=== PATIENT | female | born 1990 | race Caucasian/White ===

== ENCOUNTER → 2017-03-02 | Outpatient (CLI) | payer OTHER ==
[2017-03-02 14:51] LABS: Basophils % (A) 0 %; CH 30.4; Eosinophils # (A) 0.2 k/uL (0-0.7); Eosinophils % (A) 3 %; HCT 38.9 % (34.0-46.0); HDW 2.52; HGB 13.4 gm/dL (11.4-16.0); Luc # (Auto) 0.24; Luc % (Auto) 4; Lymphocytes % (A) 32 %; MCH 30.9 pg (25.0-35.0); MCHC 34.5 g/dL (31.0-37.0); MCV 89.7 fL (80.0-100.0); Mean Platelet Volume 7.1; Monocytes # (A) 0.4 k/uL (0-1.0); Monocytes % (A) 6 %; Neutrophils # (A) 3.5 k/uL (1.3-7.7); Neutrophils % (A) 55 %; RBC 4.34 m/uL (3.80-5.40); RDW 12.5 % (11.5-15.5); WBC 6.3 k/uL (3.8-10.6); WBC (Perox) 6.26
[2017-03-02 15:41] LABS: Erythrocyte Sedimentation Rate 7 mm/hr (0-20)
[2017-03-04 21:28] LABS: ANA w/Reflex to Titer NEGATIVE (NEGATIVE)
== END | disposition home or self-care (01) ==
LOC: LABWHC1 14:04
PROVIDERS: ATTEND Family Medicine
DX: M79.7 Fibromyalgia (principal); G43.109 Migraine with aura, not intractable, without status migrainosus
CPT/HCPCS: 36415; 85025; 85652; 86038; 86140; 86162; 86225

== ENCOUNTER → 2017-07-21 | Outpatient (CLI) | payer OTHER ==
--- NOTE | 2017-07-21 17:42 | CT ---
EXAMINATION TYPE: CT abdomen pelvis wo con DATE OF EXAM: 07/21/2017 COMPARISON: NONE HISTORY: Left flank pain x today CT DLP: 930 mGycm Automated exposure control for dose reduction was used. TECHNIQUE: Helical acquisition of images was performed from the lung bases through the pelvis. FINDINGS: Lung bases are clear of consolidation. There is no pleural effusion. Heart size is normal. Liver and spleen appear normal. The bile ducts are not dilated. There is no pancreatic mass. Gallbladder appear s normal. There is no adrenal mass. Kidneys have normal size and contour. There is no hydronephrosis. Ureters are not dilated. There is no retroperitoneal adenopathy. Appendix appears normal. There is n o ascites. There is no sign of free air. I see no intestinal wall thickening. There are no dilated loops. Bladder distends smoothly. There is a 2.5 cm cyst on the left ovary. Uterus is anteverted. I see no bony destructive process. Lumbar spin e appears normal. IMPRESSION: NEGATIVE CT SCAN OF THE ABDOMEN AND PELVIS. I DO NOT SEE A CAUSE FOR LEFT-SIDED FLANK PAIN. LEFT OVAR SAE CYST NOTED.
== END | disposition home or self-care (01) ==
LOC: RADCTMAIN 17:06
PROVIDERS: ATTEND Family Medicine
DX: N83.202 Unspecified ovarian cyst, left side (principal); Z87.442 Personal history of urinary calculi
CPT/HCPCS: 74176

== ENCOUNTER 2018-08-28 18:17 | Emergency (ER) | payer OTHER ==
[2018-08-28] MEDS ORDERED: SODIUM CHLORIDE 0.9% 1,000 ML IV STA (18:48)
[2018-08-28] MEDS ORDERED: ONDANSETRON 4 MG/2 ML VIAL IVP STA (18:48)
--- NOTE | 2018-08-28 18:51 | ED ---
Fever HPI - General Chief Complaint: Fever Stated Complaint: Flu SX Time Seen by Provider: 08/28/18 18:39 Source: patient Mode of arrival: ambulatory Limitations: no limitations - History of Present Illness Initial Comments: 28-year-old female presents with upper respiratory symptoms for last 2 days. Patient did cough congestion headache fevers nasal drainage and sore throat. Patient states he started with nausea vomiting diarrhea. Patient has been exposed to clinic flu. Patient is a group home. Patient's been giving herself Motrin and Tylenol however today not able to keep anything down. Patient states she has not urinated since this morning. No abdominal pain no back pain. No shortness of breath and wheezing MD Complaint: fever Context: sick contacts Associated Symptoms: headache, rhinorrhea, nasal congestion, sore throat, cough Treatments Prior to Arrival: Acetaminophen, Ibuprofen - Related Data Home Medications Medication Instructions Recorded Confirmed ALPRAZolam [Xanax] 0.5 mg PO Q12HR PRN 01/09/14 09/06/14 Citalopram Hydrobromide [CeleXA] 20 mg PO DAILY 01/09/14 09/06/14 Previous Rx's Medication Instructions Recorded Naproxen Sodium [Anaprox Ds] 550 mg PO Q12HR #20 tab 09/06/14 Orphenadrine [Norflex] 100 mg PO Q12H #20 tablet.er 09/06/14 traMADol HCl [Ultram] 50 mg PO Q4H PRN #20 tab 09/06/14 Ciprofloxacin HCl [Cipro] 500 mg PO Q12H 5 Days #10 tab 08/28/18 Ondansetron Odt [Zofran Odt] 4 mg PO Q8HR PRN #12 tab 08/28/18 Oseltamivir [Tamiflu] 75 mg PO Q12HR #10 cap 08/28/18 Allergies Allergy/AdvReac Type Severity Reaction Status Date / Time No Known Allergies Allergy Verified 08/28/18 18:28 Review of Systems ROS Statement: Those systems with pertinent positive or pertinent negative responses have been documented in the HPI. ROS Other: All systems not noted in ROS Statement are negative. Constitutional: Reports: fever ENT: Reports: throat pain Respiratory: Reports: cough Endocrine: Reports: fatigue Gastrointestinal: Reports: nausea, vomiting, diarrhea Neurological: Reports: headache Past Medical History Past Medical History: Fibromyalgia, Thyroid Disorder History of Any Multi-Drug Resistant Organisms: None Reported Past Surgical History: No Surgical Hx Reported Past Psychological History: Anxiety, Depression Smoking Status: Former smoker Past Alcohol Use History: Rare Past Drug Use History: None Reported General Exam Limitations: no limitations General appearance: alert, in no apparent distress Head exam: Present: atraumatic, normocephalic, normal inspection Eye exam: Present: normal appearance, PERRL, EOMI. Absent: scleral icterus, conjunctival injection, periorbital swelling ENT exam: Present: normal exam, mucous membranes moist Neck exam: Present: normal inspection. Absent: tenderness, meningismus, lymphadenopathy Respiratory exam: Present: normal lung sounds bilaterally. Absent: respiratory distress, wheezes, rales, rhonchi, stridor Cardiovascular Exam: Present: regular rate, normal rhythm, normal heart sounds. Absent: systolic murmur, diastolic murmur, rubs, gallop, clicks GI/Abdominal exam: Present: soft, tenderness (Mildly generally tender 4), normal bowel sounds. Absent: distended, guarding, rebound, rigid Course Vital Signs 08/28/18 18:25 Temperature 98.2 F Pulse Rate 104 H Respiratory 18 Rate Blood Pressure 109/72 O2 Sat by Pulse 100 Oximetry Medical Decision Making - Medical Decision Making Reviewed labs and x-ray negative for any acute changes decides urinalysis does show some white blood cells and mucus sediment. We will start on antibiotics. I'm still going to cover her with Tamiflu in regards to clinically having him influenza-type picture. Patient aware also of her antinausea medication as well. Patient can easily hydrated monitor her urinary output. Patient to be off work for the next 2 days. Return if symptoms are not improving or worsening. - Lab Data Result diagrams: 08/28/18 19:05 08/28/18 19:05 Lab Results 08/28/18 08/28/18 08/28/18 Range/Units 18:55 18:55 18:55 WBC (3.8-10.6) k/uL RBC (3.80-5.40) m/uL Hgb (11.4-16.0) gm/dL Hct (34.0-46.0) % MCV (80.0-100.0) fL MCH (25.0-35.0) pg MCHC (31.0-37.0) g/dL RDW (11.5-15.5) % Plt Count (150-450) k/uL Neutrophils % % Lymphocytes % % Monocytes % % Eosinophils % % Basophils % % Neutrophils # (1.3-7.7) k/uL Lymphocytes # (1.0-4.8) k/uL Monocytes # (0-1.0) k/uL Eosinophils # (0-0.7) k/uL Basophils # (0-0.2) k/uL Sodium (137-145) mmol/L Potassium (3.5-5.1) mmol/L Chloride (98-107) mmol/L Carbon Dioxide (22-30) mmol/L Anion Gap mmol/L BUN (7-17) mg/dL Creatinine (0.52-1.04) mg/dL Est GFR (CKD-EPI)AfAm (>60 ml/min/1.73 sqM) Est GFR (CKD-EPI)NonAf (>60 ml/min/1.73 sqM) Glucose (74-99) mg/dL Calcium (8.4-10.2) mg/dL Total Bilirubin (0.2-1.3) mg/dL AST (14-36) U/L ALT (9-52) U/L Alkaline Phosphatase (38-126) U/L Total Protein (6.3-8.2) g/dL Albumin (3.5-5.0) g/dL Urine Color Yellow Urine Appearance Cloudy H (Clear) Urine pH 5.5 (5.0-8.0) Ur Specific [place] 1.025 (1.001-1.035) Urine Protein Trace H (Negative) Urine Glucose (UA) Negative (Negative) Urine Ketones Negative (Negative) Urine Blood Negative (Negative) Urine Nitrite Negative (Negative) Urine Bilirubin Negative (Negative) Urine Urobilinogen <2.0 (<2.0) mg/dL Ur Leukocyte Esterase Moderate H (Negative) Urine WBC 63 H (0-5) /hpf Ur Squamous Epith Cells 45 H (0-4) /hpf Amorphous Sediment Rare H (None) /hpf Hyaline Casts 8 H (0-2) /lpf Urine Mucus Many H (None) /hpf Urine HCG, Qual Not Detected (Not Detectd) Influenza Type A RNA Not Detected (Not Detectd) Influenza Type B (PCR) Not Detected (Not Detectd) 08/28/18 08/28/18 Range/Units 19:05 19:05 WBC 9.9 (3.8-10.6) k/uL RBC 5.16 (3.80-5.40) m/uL Hgb 15.7 (11.4-16.0) gm/dL Hct 46.0 (34.0-46.0) % MCV 89.1 (80.0-100.0) fL MCH 30.4 (25.0-35.0) pg MCHC 34.1 (31.0-37.0) g/dL RDW 12.6 (11.5-15.5) % Plt Count 302 (150-450) k/uL Neutrophils % 86 % Lymphocytes % 5 % Monocytes % 5 % Eosinophils % 1 % Basophils % 0 % Neutrophils # 8.5 H (1.3-7.7) k/uL Lymphocytes # 0.5 L (1.0-4.8) k/uL Monocytes # 0.5 (0-1.0) k/uL Eosinophils # 0.1 (0-0.7) k/uL Basophils # 0.0 (0-0.2) k/uL Sodium 141 (137-145) mmol/L Potassium 4.2 (3.5-5.1) mmol/L Chloride 110 H (98-107) mmol/L Carbon Dioxide 19 L (22-30) mmol/L Anion Gap 12 mmol/L BUN 17 (7-17) mg/dL Creatinine 0.86 (0.52-1.04) mg/dL Est GFR (CKD-EPI)AfAm >90 (>60 ml/min/1.73 sqM) Est GFR (CKD-EPI)NonAf >90 (>60 ml/min/1.73 sqM) Glucose 103 H (74-99) mg/dL Calcium 9.9 (8.4-10.2) mg/dL Total Bilirubin 0.5 (0.2-1.3) mg/dL AST 20 (14-36) U/L ALT 31 (9-52) U/L Alkaline Phosphatase 66 (38-126) U/L Total Protein 8.5 H (6.3-8.2) g/dL Albumin 5.0 (3.5-5.0) g/dL Urine Color Urine Appearance (Clear) Urine pH (5.0-8.0) Ur Specific Bellflower (1.001-1.035) Urine Protein (Negative) Urine Glucose (UA) (Negative) Urine Ketones (Negative) Urine Blood (Negative) Urine Nitrite (Negative) Urine Bilirubin (Negative) Urine Urobilinogen (<2.0) mg/dL Ur Leukocyte Esterase (Negative) Urine WBC (0-5) /hpf Ur Squamous Epith Cells (0-4) /hpf Amorphous Sediment (None) /hpf Hyaline Casts (0-2) /lpf Urine Mucus (None) /hpf Urine HCG, Qual (Not Detectd) Influenza Type A RNA (Not Detectd) Influenza Type B (PCR) (Not Detectd) Disposition Clinical Impression: Fever, Dehydration, Gastroenteritis, UTI (urinary tract infection) Disposition: HOME SELF-CARE Condition: Good Instructions (If sedation given, give patient instructions): Dehydration (ED), Fever in Adults (ED), Gastroenteritis (ED), Urinary Tract Infection in Women (ED) Prescriptions: Ciprofloxacin HCl [Cipro] 500 mg PO Q12H 5 Days #10 tab Oseltamivir [Tamiflu] 75 mg PO Q12HR #10 cap Ondansetron Odt [Zofran Odt] 4 mg PO Q8HR PRN #12 tab PRN Reason: Nausea Is patient prescribed a controlled substance at d/c from ED?: No Referrals: Levon Longo Jr, DO [Primary Care Provider] - 1-2 days Time of Disposition: 20:27
[2018-08-28 19:21] LABS: HGB 15.7 gm/dL (11.4-16.0); MCH 30.4 pg (25.0-35.0); MCHC 34.1 g/dL (31.0-37.0); MCV 89.1 fL (80.0-100.0); RBC 5.16 m/uL (3.80-5.40); RDW 12.6 % (11.5-15.5); WBC 9.9 k/uL (3.8-10.6)
[2018-08-28 19:22] LABS: Basophils % (A) 0 %; Eosinophils # (A) 0.1 k/uL (0-0.7); Eosinophils % (A) 1 %; Lymphocytes # (A) 0.5 k/uL (1.0-4.8); Lymphocytes % (A) 5 %; Mean Platelet Volume 6.4; Monocytes # (A) 0.5 k/uL (0-1.0); Monocytes % (A) 5 %; Neutrophils # (A) 8.5 k/uL (1.3-7.7); Neutrophils % (A) 86 %; Platelet Count 302 k/uL (150-450)
[2018-08-28 19:28] LABS: ALT 31 U/L (9-52); AST 20 U/L (14-36); Alkaline Phosphatase 66 U/L (38-126); Anion Gap 12 mmol/L; Blood Urea Nitrogen 17 mg/dL (7-17); Calcium 9.9 mg/dL (8.4-10.2); Carbon Dioxide 19 mmol/L (22-30); Chloride 110 mmol/L (98-107); Glucose 103 mg/dL (74-99); Potassium 4.2 mmol/L (3.5-5.1); Sodium 141 mmol/L (137-145); Total Bilirubin 0.5 mg/dL (0.2-1.3); Total Protein 8.5 g/dL (6.3-8.2)
[2018-08-28 19:41] LABS: Amorphous Sediment,Urine Rare /hpf; Appearance,Urine Cloudy (Clear); Bilirubin,Urine Negative (Negative); Blood,Urine Negative (Negative); Color,Urine Yellow; Glucose,Urine (UA) Negative (Negative); Hyaline Casts,Urine 8 /lpf (0-2); Ketones,Urine Negative (Negative); Leukocyte Esterase,Urine Moderate (Negative); Mucus,Urine Many /hpf; Nitrite,Urine Negative (Negative); PH, Urine 5.5 (5.0-8.0); Protein,Urine Trace (Negative); Specific Gravity,Urine 1.025 (1.001-1.035); Squamous Epithelial Cell,Urine 45 /hpf (0-4); Urobilinogen,Urine <2.0 mg/dL (<2.0)
--- NOTE | 2018-08-28 20:04 | XR ---
EXAMINATION TYPE: XR chest 2V DATE OF EXAM: 08/28/2018 COMPARISON: 01/09/2014 HISTORY: Cough, congestion, fever and body aches TECHNIQUE: Frontal and lateral views of the chest are obtained. FINDINGS: There is no focal air space opacity, pleural effusion, or pneumothorax seen. The cardiac silhouette size is within normal limits. The osseous structures are intact. IMPRESSION: No acute cardiopulmonary process.
[2018-08-28 20:39] VITALS: BP 110/59; PULSE 95; RESP 20; TEMP 100.6
== END 2018-08-28 20:39 | disposition home or self-care (01) ==
LOC: EC 18:17
DX: K52.9 Noninfective gastroenteritis and colitis, unspecified (principal); N39.0 Urinary tract infection, site not specified; R09.81 Nasal congestion; R05 Cough; J02.9 Acute pharyngitis, unspecified; J34.89 Other specified disorders of nose and nasal sinuses; R51 Headache; F41.9 Anxiety disorder, unspecified; F32.9 Major depressive disorder, single episode, unspecified; Z87.891 Personal history of nicotine dependence; Z79.899 Other long term (current) drug therapy
CPT/HCPCS: 36415; 80053; 85025; 81001; 81025; 87086; 87502; 71046; 99283; 96374; 96361; J2405

== ENCOUNTER → 2018-10-29 | Outpatient (CLI) | payer OTHER ==
--- NOTE | 2018-11-01 08:01 | MM ---
Reason for exam: clinical finding. History: Patient is nulliparous. Took hormonal contraceptives for 5 years. Indicated problem(s): pain in the left breast. Physical Findings: Nurse Summary: 1cm nodule in the left breast at 3 and 4 o'clock (nurse irving). [facility] Diagnostic Mammo w CAD KELVIN Bilateral CC and MLO view(s) were taken. XCCL view(s) were taken of the left breast. The breast tissue is extremely dense which could obscure a lesion on mammography. There is no discrete abnormality including area of concern. These results were verbally communicated with the patient and result sheet given to the patient on 10/29/18. ASSESSMENT: Incomplete: need additional imaging evaluation, BI-RAD 0 RECOMMENDATION: Ultrasound of the left breast. Manage patient on a clinical basis.
--- NOTE | 2018-11-01 08:03 | USB ---
Reason for exam: additional evaluation requested from abnormal screening. History: Patient is nulliparous. Took hormonal contraceptives for 5 years. US Breast Limited LT Left limited breast ultrasound including focal area of concern, retroareolar and axilla demonstrates a 7 x 4 x 5mm oval, hypoechoic lesion at 4 o'clock. These results were verbally communicated with the patient and result sheet given to the patient on 10/29/18. ASSESSMENT: Probably benign, BI-RAD 3 RECOMMENDATION: Ultrasound of the left breast in 6 months. Manage patient on a clinical basis.
== END | disposition home or self-care (01) ==
LOC: RADMAMWWP 13:09
PROVIDERS: ATTEND Family Medicine
DX: N60.02 Solitary cyst of left breast (principal); R92.8 Other abnormal and inconclusive findings on diagnostic imaging of breast
CPT/HCPCS: 77066

== ENCOUNTER → 2019-05-02 | Outpatient (CLI) | payer OTHER ==
--- NOTE | 2019-05-02 10:05 | USB ---
Reason for exam: follow-up at short interval from prior study. History: Patient is nulliparous. Took hormonal contraceptives for 5 years. Physical Findings: Nurse Summary: 3 lumps palpated on the left breast, 0.6cm left lower outer quadrant 4 o'clock, 5 o'clock and 5:30 (nurse TM). US Breast Limited LT Left limited breast ultrasound including focal area of concern, retroareolar and axilla demonstrates a 0.7 x 0.5 x 0.6cm oval, hypoechoic lesion at 4 o'clock, some enhancement, no significant growth (prior 0.7 x 0.4 x 0.5cm). These results were verbally communicated with the patient and result sheet given to the patient on 05/02/19. ASSESSMENT: Probably benign, BI-RAD 3 RECOMMENDATION: Ultrasound of the left breast in 6 months. (lower inner quadrant targeted ultrasound)
== END | disposition home or self-care (01) ==
LOC: RADUSWWP 09:06
PROVIDERS: ATTEND Family Medicine
DX: R92.8 Other abnormal and inconclusive findings on diagnostic imaging of breast (principal)

== ENCOUNTER 2019-09-21 08:20 | Emergency (ER) | payer OTHER ==
[2019-09-21 08:25] VITALS: RESP 16
[2019-09-21] MEDS ORDERED: KETOROLAC 60 MG/2 ML VIAL IVP STA (08:39)
--- NOTE | 2019-09-21 08:41 | ED ---
General Adult HPI - General Chief complaint: Chest Pain Stated complaint: Chest Pain Time Seen by Provider: 09/21/19 08:25 Source: patient, RN notes reviewed, old records reviewed Mode of arrival: wheelchair Limitations: no limitations - History of Present Illness Initial comments: This is a 29-year-old female who presents emergency Department complaining of chest and back pain with deep breathing. Patient states it started 4 days ago. Patient states she's not taking a deep breath there's no pain. Patient states the pain is sharp in nature. The pain started on the right side of her chest but now it is also in the center. Patient states is tender to touch along the sternum. Patient denies shortness of breath. Patient denies any significant cough. Patient denies any swelling to legs or calf tenderness. Patient denies any heavy lifting and exercise. Patient denies abdominal pain patient denies nausea vomiting diarrhea. - Related Data Home Medications Medication Instructions Recorded Confirmed ALPRAZolam [Xanax] 0.5 mg PO Q12HR PRN 01/09/14 09/06/14 Citalopram Hydrobromide [CeleXA] 20 mg PO DAILY 01/09/14 09/06/14 Previous Rx's Medication Instructions Recorded Naproxen Sodium [Anaprox Ds] 550 mg PO Q12HR #20 tab 09/06/14 Orphenadrine [Norflex] 100 mg PO Q12H #20 tablet.er 09/06/14 traMADol HCl [Ultram] 50 mg PO Q4H PRN #20 tab 09/06/14 Ciprofloxacin HCl [Cipro] 500 mg PO Q12H 5 Days #10 tab 08/28/18 Ondansetron Odt [Zofran Odt] 4 mg PO Q8HR PRN #12 tab 08/28/18 Oseltamivir [Tamiflu] 75 mg PO Q12HR #10 cap 08/28/18 Ibuprofen [Motrin] 600 mg PO Q6HR PRN #20 tab 09/21/19 Allergies Allergy/AdvReac Type Severity Reaction Status Date / Time No Known Allergies Allergy Verified 09/21/19 08:25 Review of Systems ROS Statement: Those systems with pertinent positive or pertinent negative responses have been documented in the HPI. ROS Other: All systems not noted in ROS Statement are negative. Past Medical History Past Medical History: Fibromyalgia, Thyroid Disorder History of Any Multi-Drug Resistant Organisms: None Reported Past Surgical History: No Surgical Hx Reported Past Psychological History: Anxiety, Depression Smoking Status: Former smoker Past Alcohol Use History: Rare Past Drug Use History: None Reported General Exam - General Exam Comments Initial Comments: GENERAL: Patient is well-developed and well-nourished. Patient is nontoxic and well- hydrated and is in mild distress. ENT: Neck is soft and supple. No significant lymphadenopathy is noted. Oropharynx is clear. Moist mucous membranes. Neck has full range of motion without eliciting any pain. EYES: The sclera were anicteric and conjunctiva were pink and moist. Extraocular movements were intact and pupils were equal round and reactive to light. Eyelids were unremarkable. PULMONARY: Unlabored respirations. Good breath sounds bilaterally. No audible rales rhonchi or wheezing was noted. CARDIOVASCULAR: There is a regular rate and rhythm without any murmurs gallops or rubs. Palpating on the sternum was tender and patient stated this was the same pain she was experiencing with deep breathing. ABDOMEN: Soft and nontender with normal bowel sounds. SKIN: Skin is clear with no lesions or rashes and otherwise unremarkable. NEUROLOGIC: Patient is alert and oriented x3. Cranial nerves II through XII are grossly intact. Motor and sensory are also intact. Normal speech, volume and content. Symmetrical smile. MUSCULOSKELETAL: Normal extremities with adequate strength and full range of motion. LYMPHATICS: No significant lymphadenopathy is noted PSYCHIATRIC: Normal psychiatric evaluation. Limitations: no limitations Course Vital Signs 09/21/19 08:23 Temperature 98.3 F Pulse Rate 78 Respiratory 16 Rate Blood Pressure 123/77 O2 Sat by Pulse 100 Oximetry Medical Decision Making - Medical Decision Making EKG shows normal sinus rhythm at 77 bpm MA interval is 148 QRS is 76 QT interval 380 QTC is 439. Patient's EKG shows no ST segment elevation or depression. Chest x-ray shows no acute abnormality. I started the patient returns as any shortness of breath worsening pain or fever. - Lab Data Result diagrams: 09/21/19 08:37 09/21/19 08:37 Lab Results 09/21/19 09/21/19 09/21/19 Range/Units 08:37 08:37 08:37 WBC 8.9 (3.8-10.6) k/uL RBC 4.73 (3.80-5.40) m/uL Hgb 14.5 (11.4-16.0) gm/dL Hct 42.4 (34.0-46.0) % MCV 89.8 (80.0-100.0) fL MCH 30.7 (25.0-35.0) pg MCHC 34.2 (31.0-37.0) g/dL RDW 12.5 (11.5-15.5) % Plt Count 331 (150-450) k/uL Neutrophils % 62 % Lymphocytes % 28 % Monocytes % 5 % Eosinophils % 1 % Basophils % 1 % Neutrophils # 5.6 (1.3-7.7) k/uL Lymphocytes # 2.5 (1.0-4.8) k/uL Monocytes # 0.4 (0-1.0) k/uL Eosinophils # 0.1 (0-0.7) k/uL Basophils # 0.1 (0-0.2) k/uL PT 9.8 (9.0-12.0) sec INR 0.9 (<1.2) APTT 24.7 (22.0-30.0) sec D-Dimer 0.29 (<0.60) mg/L FEU Sodium 139 (137-145) mmol/L Potassium 4.1 (3.5-5.1) mmol/L Chloride 110 H (98-107) mmol/L Carbon Dioxide 16 L (22-30) mmol/L Anion Gap 13 mmol/L BUN 13 (7-17) mg/dL Creatinine 0.73 (0.52-1.04) mg/dL Est GFR (CKD-EPI)AfAm >90 (>60 ml/min/1.73 sqM) Est GFR (CKD-EPI)NonAf >90 (>60 ml/min/1.73 sqM) Glucose 104 H (74-99) mg/dL Calcium 9.9 (8.4-10.2) mg/dL Magnesium 2.1 (1.6-2.3) mg/dL Total Bilirubin 0.5 (0.2-1.3) mg/dL AST 25 (14-36) U/L ALT 22 (4-34) U/L Alkaline Phosphatase 65 (38-126) U/L Troponin I (0.000-0.034) ng/mL Total Protein 8.2 (6.3-8.2) g/dL Albumin 4.9 (3.5-5.0) g/dL 09/21/19 Range/Units 08:37 WBC (3.8-10.6) k/uL RBC (3.80-5.40) m/uL Hgb (11.4-16.0) gm/dL Hct (34.0-46.0) % MCV (80.0-100.0) fL MCH (25.0-35.0) pg MCHC (31.0-37.0) g/dL RDW (11.5-15.5) % Plt Count (150-450) k/uL Neutrophils % % Lymphocytes % % Monocytes % % Eosinophils % % Basophils % % Neutrophils # (1.3-7.7) k/uL Lymphocytes # (1.0-4.8) k/uL Monocytes # (0-1.0) k/uL Eosinophils # (0-0.7) k/uL Basophils # (0-0.2) k/uL PT (9.0-12.0) sec INR (<1.2) APTT (22.0-30.0) sec D-Dimer (<0.60) mg/L FEU Sodium (137-145) mmol/L Potassium (3.5-5.1) mmol/L Chloride (98-107) mmol/L Carbon Dioxide (22-30) mmol/L Anion Gap mmol/L BUN (7-17) mg/dL Creatinine (0.52-1.04) mg/dL Est GFR (CKD-EPI)AfAm (>60 ml/min/1.73 sqM) Est GFR (CKD-EPI)NonAf (>60 ml/min/1.73 sqM) Glucose (74-99) mg/dL Calcium (8.4-10.2) mg/dL Magnesium (1.6-2.3) mg/dL Total Bilirubin (0.2-1.3) mg/dL AST (14-36) U/L ALT (4-34) U/L Alkaline Phosphatase (38-126) U/L Troponin I <0.012 (0.000-0.034) ng/mL Total Protein (6.3-8.2) g/dL Albumin (3.5-5.0) g/dL Disposition Clinical Impression: Chest wall pain Disposition: HOME SELF-CARE Condition: Good Instructions (If sedation given, give patient instructions): Chest Wall Pain (ED) Prescriptions: Ibuprofen [Motrin] 600 mg PO Q6HR PRN #20 tab PRN Reason: For pain Is patient prescribed a controlled substance at d/c from ED?: No Referrals: Levon Longo Jr, DO [Primary Care Provider] - 1-2 days Time of Disposition: 09:55
--- NOTE | 2019-09-21 08:51 | XR ---
EXAMINATION TYPE: XR chest 2V DATE OF EXAM: 09/21/2019 COMPARISON: 08/28/2018 HISTORY: 29-year-old female with chest pain TECHNIQUE: PA and lateral views FINDINGS: The cardiomediastinal silhouette, aorta, and pulmonary vasculature are within normal limits. Lungs an d pleural spaces are clear. Bilateral nipple bars. IMPRESSION: No acute cardiopulmonary process.
[2019-09-21 08:52] LABS: Basophils # (A) 0.1 k/uL (0-0.2); Basophils % (A) 1 %; Eosinophils # (A) 0.1 k/uL (0-0.7); Eosinophils % (A) 1 %; HCT 42.4 % (34.0-46.0); HGB 14.5 gm/dL (11.4-16.0); Lymphocytes # (A) 2.5 k/uL (1.0-4.8); Lymphocytes % (A) 28 %; MCH 30.7 pg (25.0-35.0); MCHC 34.2 g/dL (31.0-37.0); MCV 89.8 fL (80.0-100.0); Mean Platelet Volume 7.6; Monocytes # (A) 0.4 k/uL (0-1.0); Monocytes % (A) 5 %; Neutrophils # (A) 5.6 k/uL (1.3-7.7); Neutrophils % (A) 62 %; Platelet Count 331 k/uL (150-450); RBC 4.73 m/uL (3.80-5.40); RDW 12.5 % (11.5-15.5); WBC 8.9 k/uL (3.8-10.6)
[2019-09-21 09:03] LABS: ALT 22 U/L (4-34); AST 25 U/L (14-36); African American GFR (CKD) >90 (>60 ml/min/1.73 sqM); Albumin 4.9 g/dL (3.5-5.0); Alkaline Phosphatase 65 U/L (38-126); Anion Gap 13 mmol/L; Blood Urea Nitrogen 13 mg/dL (7-17); Calcium 9.9 mg/dL (8.4-10.2); Carbon Dioxide 16 mmol/L (22-30); Chloride 110 mmol/L (98-107); Glucose 104 mg/dL (74-99); Magnesium 2.1 mg/dL (1.6-2.3); Non-African American GFR(CKD) >90 (>60 ml/min/1.73 sqM); Potassium 4.1 mmol/L (3.5-5.1); Sodium 139 mmol/L (137-145); Total Bilirubin 0.5 mg/dL (0.2-1.3); Total Protein 8.2 g/dL (6.3-8.2)
[2019-09-21 09:10] LABS: D-Dimer 0.29 mg/L FEU (<0.60); INR 0.9 (<1.2); Partial Thromboplastin Time 24.7 sec (22.0-30.0); Prothrombin Time 9.8 sec (9.0-12.0)
[2019-09-21 10:13] VITALS: BP 140/85; PULSE 80; TEMP 98.2
== END 2019-09-21 10:20 | disposition home or self-care (01) ==
LOC: EC 08:20
DX: R07.89 Other chest pain (principal); F41.9 Anxiety disorder, unspecified; F32.9 Major depressive disorder, single episode, unspecified; Z79.899 Other long term (current) drug therapy; Z87.891 Personal history of nicotine dependence
CPT/HCPCS: 36415; 93005; 85379; 80053; 83735; 84484; 85025; 85610; 85730; 71046; 99285; 96374; J1885

== ENCOUNTER 2019-11-06 11:31 | Emergency (ER) | payer OTHER ==
[2019-11-06 11:36] VITALS: RESP 16
[2019-11-06] MEDS ORDERED: KETOROLAC 30 MG/ML 1 ML VIAL IM STA (12:14)
--- NOTE | 2019-11-06 12:36 | ED ---
General Adult HPI - General Chief complaint: Neck Pain/Injury Stated complaint: stiff neck Time Seen by Provider: 11/06/19 11:44 Source: patient, RN notes reviewed Mode of arrival: ambulatory Limitations: no limitations - History of Present Illness Initial comments: 29-year-old female presents to the emergency department for a chief complaint of neck pain. Patient has a history of fibromyalgia. Patient has had neck pain for about 5 days. States it is worse on the right side. Patient states she can barely turn her head to the left but can turn it to the right. Patient states the pain radiates down her back into her right shoulder when she moves. Patient denies any fevers or chills. Denies any recent illnesses. Denies any associated headaches. States his pain all started when she woke up one morning. Patient has no other complaints at this time including shortness of breath, chest pain, abdominal pain, nausea or vomiting, headache, or visual changes. - Related Data Home Medications Medication Instructions Recorded Confirmed ALPRAZolam [Xanax] 0.5 mg PO Q12HR PRN 01/09/14 09/06/14 Citalopram Hydrobromide [CeleXA] 20 mg PO DAILY 01/09/14 09/06/14 Previous Rx's Medication Instructions Recorded Naproxen Sodium [Anaprox Ds] 550 mg PO Q12HR #20 tab 09/06/14 Orphenadrine [Norflex] 100 mg PO Q12H #20 tablet.er 09/06/14 traMADol HCl [Ultram] 50 mg PO Q4H PRN #20 tab 09/06/14 Ciprofloxacin HCl [Cipro] 500 mg PO Q12H 5 Days #10 tab 08/28/18 Ondansetron Odt [Zofran Odt] 4 mg PO Q8HR PRN #12 tab 08/28/18 Oseltamivir [Tamiflu] 75 mg PO Q12HR #10 cap 08/28/18 Ibuprofen [Motrin] 600 mg PO Q6HR PRN #20 tab 09/21/19 Cyclobenzaprine [Flexeril] 10 mg PO TID #12 tab 11/06/19 Ibuprofen [Motrin] 600 mg PO Q8HR PRN #20 tab 11/06/19 Allergies Allergy/AdvReac Type Severity Reaction Status Date / Time No Known Allergies Allergy Verified 11/06/19 11:36 Review of Systems ROS Statement: Those systems with pertinent positive or pertinent negative responses have been documented in the HPI. ROS Other: All systems not noted in ROS Statement are negative. Past Medical History Past Medical History: Fibromyalgia, Thyroid Disorder History of Any Multi-Drug Resistant Organisms: None Reported Past Surgical History: No Surgical Hx Reported Past Psychological History: Anxiety, Depression Smoking Status: Former smoker Past Alcohol Use History: Rare Past Drug Use History: None Reported General Exam Limitations: no limitations General appearance: alert, in no apparent distress Head exam: Present: atraumatic, normocephalic, normal inspection Eye exam: Present: normal appearance, PERRL, EOMI. Absent: scleral icterus, conjunctival injection, periorbital swelling ENT exam: Present: normal exam, mucous membranes moist Neck exam: Present: normal inspection, tenderness (Tenderness noted to the right paraspinal cervical muscles as well as medial to the right scapula. No significant midline tenderness.), full ROM. Absent: meningismus (Negative Kernig, Brudzinski, ), lymphadenopathy Respiratory exam: Present: normal lung sounds bilaterally Course Vital Signs 11/06/19 11:33 Temperature 98.3 F Pulse Rate 81 Respiratory 16 Rate Blood Pressure 127/83 O2 Sat by Pulse 99 Oximetry Medical Decision Making - Medical Decision Making HPI physical exam is tachycardia minute. Patient is afebrile. She is well appearing. Patient is able to turn her neck to the right however turning her neck to the left she can only turn about 30. Negative Kernig and negative Brudzinski. This is likely musculoskeletal given the distribution of the trapezius muscle and pain worsening with movement and certain direction. Patient was given Toradol and muscle relaxers. She denies any chance of . Will follow up with her doctor. Will return for any worsening symptoms. Disposition Clinical Impression: Neck pain Disposition: HOME SELF-CARE Condition: Good Instructions (If sedation given, give patient instructions): Cervical Strain (ED) Additional Instructions: Please take Motrin or Tylenol for pain. Please take muscle relaxer as directed but do not drive or operate machinery while taking this. Follow-up with primary care in 1-2 days. Return to the emergency room for any worsening symptoms. Prescriptions: Cyclobenzaprine [Flexeril] 10 mg PO TID #12 tab Ibuprofen [Motrin] 600 mg PO Q8HR PRN #20 tab PRN Reason: Pain Is patient prescribed a controlled substance at d/c from ED?: No Referrals: Levon Longo Jr, [Primary Care Provider] - 1-2 days Time of Disposition: 12:34
[2019-11-06 12:56] VITALS: BP 122/70; PULSE 67; TEMP 98.2
== END 2019-11-06 12:56 | disposition home or self-care (01) ==
LOC: EC 11:31
DX: M54.2 Cervicalgia (principal); R00.0 Tachycardia, unspecified; F41.9 Anxiety disorder, unspecified; F32.9 Major depressive disorder, single episode, unspecified; Z79.899 Other long term (current) drug therapy; Z87.891 Personal history of nicotine dependence
CPT/HCPCS: 99283; 96372; J1885

== ENCOUNTER 2021-05-21 22:17 | Emergency (ER) | payer BC, OTHER ==
[2021-05-21 22:24] VITALS: BP 123/85; PULSE 69; RESP 20; TEMP 98.5
[2021-05-22] MEDS ORDERED: ACET/COD 300 MG/30 MG STARTER PACK 6 TAB BTL PO STA (00:08)
[2021-05-22] MEDS ORDERED: LIDOCAINE 5% PATCH TOPICAL STA (00:08)
[2021-05-22] MEDS ORDERED: DIAZEPAM 5 MG/ML 2 ML INJ IM ONE (00:08)
[2021-05-22] MEDS ORDERED: KETOROLAC 30 MG/ML 1 ML VIAL IM STA (00:08)
--- NOTE | 2021-05-22 00:11 | ED ---
Neck Injury/Pain HPI - General Chief Complaint: Neck Pain/Injury Stated Complaint: NECK PAIN Time Seen by Provider: 05/21/21 23:56 Mode of arrival: wheelchair Limitations: no limitations - History of Present Illness Initial Comments: 30-year-old female patient presents to the emergency department today for evaluation of right-sided neck pain with radiation into the base of her head. States symptoms have been going on for the last couple of days. States she is unable to turn her head to the left and has a lot of pain with turning her head to the right. She denies any blurred or double vision. Denies radiation of pain down her arms. Denies numbness or tingling to the upper extremities. She denies any falls or head injury. States she did take out her Profen at home w [facility]. Denies any fever or chills. - Related Data Home Medications Medication Instructions Recorded Confirmed ALPRAZolam [Xanax] 0.5 mg PO Q12HR PRN 01/09/14 09/06/14 Citalopram Hydrobromide [CeleXA] 20 mg PO DAILY 01/09/14 09/06/14 Previous Rx's Medication Instructions Recorded Naproxen Sodium [Anaprox Ds] 550 mg PO Q12HR #20 tab 09/06/14 Orphenadrine [Norflex] 100 mg PO Q12H #20 tablet.er 09/06/14 traMADol HCl [Ultram] 50 mg PO Q4H PRN #20 tab 09/06/14 Ciprofloxacin HCl [Cipro] 500 mg PO Q12H 5 Days #10 tab 08/28/18 Ondansetron Odt [Zofran Odt] 4 mg PO Q8HR PRN #12 tab 08/28/18 Oseltamivir [Tamiflu] 75 mg PO Q12HR #10 cap 08/28/18 Ibuprofen [Motrin] 600 mg PO Q6HR PRN #20 tab 09/21/19 Cyclobenzaprine [Flexeril] 10 mg PO TID #12 tab 11/06/19 Ibuprofen [Motrin] 600 mg PO Q8HR PRN #20 tab 11/06/19 Diazepam [Valium] 5 mg PO TID PRN 3 Days #9 tab 05/22/21 Naproxen [EC-Naprosyn] 500 mg PO BID PRN #30 tab 05/22/21 Allergies Allergy/AdvReac Type Severity Reaction Status Date / Time No Known Allergies Allergy Verified 05/21/21 22:21 Review of Systems ROS Statement: Those systems with pertinent positive or pertinent negative responses have been documented in the HPI. ROS Other: All systems not noted in ROS Statement are negative. Past Medical History Past Medical History: Fibromyalgia, Thyroid Disorder History of Any Multi-Drug Resistant Organisms: None Reported Past Surgical History: No Surgical Hx Reported Past Psychological History: Anxiety, Depression Smoking Status: Never smoker Past Alcohol Use History: Rare Past Drug Use History: None Reported General Exam Limitations: no limitations General appearance: alert, in no apparent distress, other (This is a well- developed, well-nourished adult female in no acute distress. ) Eye exam: Present: normal appearance, PERRL, EOMI. Absent: scleral icterus, conjunctival injection, periorbital swelling ENT exam: Present: normal exam, mucous membranes moist Neck exam: Present: normal inspection, tenderness (Right lateral). Absent: meningismus, lymphadenopathy Respiratory exam: Present: normal lung sounds bilaterally. Absent: respiratory distress, wheezes, rales, rhonchi, stridor Cardiovascular Exam: Present: regular rate, normal rhythm, normal heart sounds. Absent: systolic murmur, diastolic murmur, rubs, gallop, clicks Neurological exam: Present: alert, oriented X3, CN II-XII intact Expanded Speech: Present: fluid speech Cranial nerves: EOM's Intact: Normal Motor strength exam: RUE: 5, LUE: 5, RLE: 5, LLE: 5 Psychiatric exam: Present: normal affect, normal mood Skin exam: Present: warm, dry, intact, normal color. Absent: rash Course Vital Signs 05/21/21 22:21 Temperature 98.5 F Pulse Rate 69 Respiratory 20 Rate Blood Pressure 123/85 O2 Sat by Pulse 98 Oximetry Medical Decision Making - Medical Decision Making 30-year-old female patient presents to the emergency department today for evaluation of neck pain with radiation into her head. She is unable to turn her head without significant pain. She does have muscular tenderness. Symptoms are consistent with spasmodic torticollis. She is given IM doses of anti- inflammatory and muscle relaxer. She is instructed to apply warm compresses to the neck. Prescriptions were sent to her pharmacy. She is instructed to follow-up with her primary care physician for recheck in 1-2 days. She is in structed to discuss possibility of physical therapy of her symptoms do not improve. Return parameters were discussed in detail. She verbalizes understanding and agrees with this plan. My attending is Dr. Monroe. Disposition Clinical Impression: Spasmodic torticollis Disposition: HOME SELF-CARE Condition: Good Instructions (If sedation given, give patient instructions): Spasmodic Torticollis (ED) Additional Instructions: Apply heat packs. Take medication as directed. Follow-up with the primary care physician for recheck in 1-2 days. Consider physical therapy if her symptoms are improved. Return for any new, worsening, or concerning symptoms. Prescriptions: Naproxen [EC-Naprosyn] 500 mg PO BID PRN #30 tab PRN Reason: Pain Diazepam [Valium] 5 mg PO TID PRN 3 Days #9 tab PRN Reason: Muscle Spasm Is patient prescribed a controlled substance at d/c from ED?: No Referrals: Levon Longo Jr, [Primary Care Provider] - 1-2 days Time of Disposition: 00:11
== END 2021-05-22 00:33 | disposition home or self-care (01) ==
LOC: EC 22:17
DX: G24.3 Spasmodic torticollis (principal)
CPT/HCPCS: 99283; 96372; J3360; J1885